=== PATIENT | female | born 1955 | race Caucasian/White ===

== ENCOUNTER → 2016-06-28 | Outpatient (CLI) | payer MEDICARE, OTHER ==
--- NOTE | 2016-06-28 14:48 | MR ---
EXAMINATION TYPE: MR lumbar spine wo con DATE OF EXAM: 06/28/2016 2:15 PM COMPARISON: NONE HISTORY: DDD, back pain CONTRAST: 0 mL intravenous MultiHance. TECHNIQUE: Multiplanar, multisequence images of the lumbar spine were acquired. FINDINGS: L5-S1: Minimal disc bulge is present with anterior thecal sac contact. Facet hypertrophy is present. No spinal canal stenosis is present. No significant foraminal narrowing is present. Mild disc space n arrowing is present. L4-L5: There is loss of disc height is level. Residual disc bulge has moderate anterior thecal sac co mpression. There is a small left paracentral subligamentous disc herniation extending inferior with m ild anterior thecal sac compression. This is best visualized in the axial plane poorly visualized on the sagittal plane Facet hypertrophy and ligamentum flavum laxity is present with posterior lateral t hecal sac compression. Lateral recesses are patent. There is moderate right and left foraminal stenos is. Minimal contact within the neural foramen with disc material may be present. Correlate with radic ular symptoms. L3-L4: Minimal disc bulging is anterior thecal sac flattening. No AP spinal canal stenosis present. F acet hypertrophy and ligamentum flavum laxity is present. This has posterior lateral thecal sac compr ession. L2-L3: Minimal disc bulge is present with anterior thecal sac contact. No spinal canal stenosis or ne ural foraminal stenosis is present. L1-L2: No significant disc bulge or disc herniation. No spinal canal stenosis. No foraminal stenosi s. Disc space narrowing is present.. T12-L1: No significant disc bulge or disc herniation. No spinal canal stenosis. No foraminal stenos is. Neural foramen are patent.. IMPRESSION: 1. Left paracentral small disc herniation L4-5 extending posterior to L5 with mild anterior thecal sa c compression. Residual broad-based disc bulge has moderate anterior thecal sac compression. 2. Moderate foraminal stenosis with possible disc material impinging the exiting nerve root within th e foramen. Correlate with the radicular symptoms.
== END | disposition home or self-care (01) ==
LOC: RADMRIMAIN 13:30
PROVIDERS: ATTEND Nurse Practitioner
DX: M99.73 Connective tissue and disc stenosis of intervertebral foramina of lumbar region (principal); M51.16 Intervertebral disc disorders with radiculopathy, lumbar region
CPT/HCPCS: 72148

== ENCOUNTER → 2019-05-05 | Outpatient (CLI) | payer MEDICARE, OTHER ==
--- NOTE | 2019-05-05 20:23 | MR ---
EXAMINATION TYPE: MR shoulder LT wo con DATE OF EXAM: 05/05/2019 COMPARISON: None HISTORY: Lt shoulder pain TECHNIQUE: Multiplanar, multisequence imaging of the left shoulder is performed without contrast. FINDINGS: There is motion on the exam which may limit evaluation Rotator Cuff: Full-thickness partial tear is present of the rotator cuff tendon, supraspinatus tendon shows partial discontinuity at its central aspect Acromioclavicular Joint: Arthropathy at the acromioclavicular joint causes some mass effect on the mu sculotendinous junction of supraspinatus. Distal acromion is downturned Glenohumeral Joint: Intact Labrum: The labrum appears grossly intact given limitation of non-arthrogram study. Biceps Tendon: Fluid signal is present along the long head of biceps tendon, the tendon shows a maximo l position in the bicipital groove Bone marrow signal: Pseudocysts are present in the humeral head. Other: Fluid signal present along the subscapularis musculotendinous junction, difficult to exclude a local ganglion cyst IMPRESSION: Partial full-thickness tear rotator cuff. Correlate for impingement. Additional findings above.
== END | disposition home or self-care (01) ==
LOC: RADMRIMAIN 15:48
PROVIDERS: ATTEND Nurse Practitioner
DX: M75.122 Complete rotator cuff tear or rupture of left shoulder, not specified as traumatic (principal); M12.812 Other specific arthropathies, not elsewhere classified, left shoulder

== ENCOUNTER 2019-07-25 00:05 | Emergency (ER) | payer MEDICARE ==
[2019-07-25 00:22] VITALS: RESP 18
--- NOTE | 2019-07-25 01:07 | ED ---
Extremity Problem HPI - General Chief complaint: Extremity Problem,Nontraumatic Stated complaint: R Arm Pain/ Tingling Time Seen by Provider: 07/25/19 00:35 Source: patient Mode of arrival: ambulatory - History of Present Illness Initial comments: This patient is a 64-year-old woman who presents with complaint of having a burning or tingling sensation to the right arm has been going on for days to weeks but is much worse over the past day to 2. Patient indicates base from the shoulder down towards the fingers. The sensation may be worse along the radial aspect. The patient states that it sometimes seems to be worse after movement although nothing makes it resolved. No weakness. Patient denies any trauma. MD Complaint: extremity pain -: week(s) Location: right, upper extremity History of Same: Yes Radiation: distal Quality: other Consistency: constant Improves with: nothing Worsens with: other (Movement) Associated Symptoms: denies other symptoms - Related Data Home Medications Medication Instructions Recorded Confirmed Sertraline HCl 100 mg PO DAILY 03/14/15 07/25/19 Hydrocodone/Acetaminophen [[place] 1 tab PO Q6HR PRN 07/25/19 07/25/19 5-325] Previous Rx's Medication Instructions Recorded predniSONE 60 mg PO DAILY #30 tab 07/25/19 Allergies Allergy/AdvReac Type Severity Reaction Status Date / Time No Known Allergies Allergy Verified 07/25/19 00:23 Review of Systems ROS Statement: Those systems with pertinent positive or pertinent negative responses have been documented in the HPI. ROS Other: All systems not noted in ROS Statement are negative. Constitutional: Denies: fever, chills, weakness Respiratory: Denies: cough, dyspnea Cardiovascular: Denies: chest pain, edema, syncope Gastrointestinal: Denies: vomiting Skin: Denies: rash Neurological: Reports: as per HPI, paresthesias. Denies: headache, weakness, numbness Past Medical History Past Medical History: Osteoarthritis (OA) Additional Past Medical History / Comment(s): SHORT OF BREATH EASILY SINCE 11/2014, EST. ABN STRESS TEST. History of Any Multi-Drug Resistant Organisms: None Reported Past Surgical History: Heart Catheterization, Orthopedic Surgery Additional Past Surgical History / Comment(s): LT KNEE ARTHROSCOPY. RT ROTATOR CUFF. Past Anesthesia/Blood Transfusion Reactions: No Reported Reaction Past Psychological History: Depression Smoking Status: Former smoker Past Alcohol Use History: None Reported Past Drug Use History: None Reported - Past Family History Father Family Medical History: Myocardial Infarction ([place]) Mother Family Medical History: Myocardial Infarction ([place]) General Exam General appearance: alert, in no apparent distress Head exam: Present: atraumatic, normocephalic Eye exam: Present: normal appearance. Absent: scleral icterus, conjunctival injection Neck exam: Present: full ROM. Absent: tenderness Respiratory exam: Present: normal lung sounds bilaterally. Absent: respiratory distress, wheezes, rales, rhonchi, stridor Cardiovascular Exam: Present: regular rate, normal rhythm, normal heart sounds Extremities exam: Present: normal inspection, full ROM, normal capillary refill. Absent: tenderness Back exam: Absent: paraspinal tenderness, vertebral tenderness Neurological exam: Present: alert. Absent: motor sensory deficit Skin exam: Present: warm, dry, intact, normal color. Absent: rash Course Vital Signs 07/25/19 07/25/19 00:19 02:30 Temperature 97.8 F 97.7 F Pulse Rate 63 56 L Respiratory 18 18 Rate Blood Pressure 139/64 125/65 O2 Sat by Pulse 96 99 Oximetry Medical Decision Making - Medical Decision Making Patient is a 64-year-old woman with history of physical exam consistent with neuropathic pain to the right arm. She has had decent relief with treatment here. We discussed appropriate further care and follow-up including possibility of needing C-spine MRI and/or EMG. Patient given course of steroids. Return parameters discussed. - Lab Data Result diagrams: 07/25/19 01:02 07/25/19 01:02 Lab Results 07/25/19 07/25/19 07/25/19 Range/Units 01:02 01:02 01:02 WBC 7.7 (3.8-10.6) k/uL RBC 4.08 (3.80-5.40) m/uL Hgb 11.2 L (11.4-16.0) gm/dL Hct 35.4 (34.0-46.0) % MCV 86.7 (80.0-100.0) fL MCH 27.5 (25.0-35.0) pg MCHC 31.8 (31.0-37.0) g/dL RDW 13.3 (11.5-15.5) % Plt Count 390 (150-450) k/uL Neutrophils % 56 % Lymphocytes % 28 % Monocytes % 8 % Eosinophils % 4 % Basophils % 1 % Neutrophils # 4.3 (1.3-7.7) k/uL Lymphocytes # 2.2 (1.0-4.8) k/uL Monocytes # 0.6 (0-1.0) k/uL Eosinophils # 0.3 (0-0.7) k/uL Basophils # 0.1 (0-0.2) k/uL D-Dimer 0.41 (<0.60) mg/L FEU Sodium 138 (137-145) mmol/L Potassium 4.6 (3.5-5.1) mmol/L Chloride 104 (98-107) mmol/L Carbon Dioxide 27 (22-30) mmol/L Anion Gap 7 mmol/L BUN 28 H (7-17) mg/dL Creatinine 0.82 (0.52-1.04) mg/dL Est GFR (CKD-EPI)AfAm 88 (>60 ml/min/1.73 sqM) Est GFR (CKD-EPI)NonAf 77 (>60 ml/min/1.73 sqM) Glucose 85 (74-99) mg/dL Calcium 9.1 (8.4-10.2) mg/dL Total Bilirubin 0.3 (0.2-1.3) mg/dL AST 40 H (14-36) U/L ALT 20 (4-34) U/L Alkaline Phosphatase 108 (38-126) U/L Troponin I (0.000-0.034) ng/mL Total Protein 6.9 (6.3-8.2) g/dL Albumin 4.0 (3.5-5.0) g/dL 07/25/19 Range/Units 01:02 WBC (3.8-10.6) k/uL RBC (3.80-5.40) m/uL Hgb (11.4-16.0) gm/dL Hct (34.0-46.0) % MCV (80.0-100.0) fL MCH (25.0-35.0) pg MCHC (31.0-37.0) g/dL RDW (11.5-15.5) % Plt Count (150-450) k/uL Neutrophils % % Lymphocytes % % Monocytes % % Eosinophils % % Basophils % % Neutrophils # (1.3-7.7) k/uL Lymphocytes # (1.0-4.8) k/uL Monocytes # (0-1.0) k/uL Eosinophils # (0-0.7) k/uL Basophils # (0-0.2) k/uL D-Dimer (<0.60) mg/L FEU Sodium (137-145) mmol/L Potassium (3.5-5.1) mmol/L Chloride (98-107) mmol/L Carbon Dioxide (22-30) mmol/L Anion Gap mmol/L BUN (7-17) mg/dL Creatinine (0.52-1.04) mg/dL Est GFR (CKD-EPI)AfAm (>60 ml/min/1.73 sqM) Est GFR (CKD-EPI)NonAf (>60 ml/min/1.73 sqM) Glucose (74-99) mg/dL Calcium (8.4-10.2) mg/dL Total Bilirubin (0.2-1.3) mg/dL AST (14-36) U/L ALT (4-34) U/L Alkaline Phosphatase (38-126) U/L Troponin I <0.012 (0.000-0.034) ng/mL Total Protein (6.3-8.2) g/dL Albumin (3.5-5.0) g/dL - EKG Data -: EKG Interpreted by [facility] EKG shows normal: sinus rhythm, axis (Normal), intervals (Normal), QRS complexes (Normal), ST-T waves (Normal) Rate: bradycardia (Rate 57 bpm) Interpretation: normal EKG Disposition Clinical Impression: Neuropathy Disposition: HOME SELF-CARE Condition: Good Instructions (If sedation given, give patient instructions): Cervical Radiculopathy (ED) Prescriptions: predniSONE 60 mg PO DAILY #30 tab Is patient prescribed a controlled substance at d/c from ED?: No Referrals: Henrietta Farias DO [Primary Care Provider] - 1-2 days Neymar Kent MD [STAFF PHYSICIAN] - 1-2 days
[2019-07-25] MEDS ORDERED: predniSONE 20 MG TAB PO STA (01:23)
[2019-07-25] MEDS ORDERED: HYDROcodone/APAP 10-325MG 1 EACH TAB PO ONE (01:23)
[2019-07-25 01:29] LABS: Basophils # (A) 0.1 k/uL (0-0.2); Basophils % (A) 1 %; Eosinophils # (A) 0.3 k/uL (0-0.7); Eosinophils % (A) 4 %; HCT 35.4 % (34.0-46.0); HGB 11.2 gm/dL (11.4-16.0); Lymphocytes # (A) 2.2 k/uL (1.0-4.8); Lymphocytes % (A) 28 %; MCH 27.5 pg (25.0-35.0); MCHC 31.8 g/dL (31.0-37.0); MCV 86.7 fL (80.0-100.0); Mean Platelet Volume 7.3; Monocytes # (A) 0.6 k/uL (0-1.0); Monocytes % (A) 8 %; Neutrophils # (A) 4.3 k/uL (1.3-7.7); Neutrophils % (A) 56 %; Platelet Count 390 k/uL (150-450); RBC 4.08 m/uL (3.80-5.40); RDW 13.3 % (11.5-15.5); WBC 7.7 k/uL (3.8-10.6)
[2019-07-25 01:45] LABS: Calcium 9.1 mg/dL (8.4-10.2); Potassium 4.6 mmol/L (3.5-5.1); Total Bilirubin 0.3 mg/dL (0.2-1.3); Total Protein 6.9 g/dL (6.3-8.2)
[2019-07-25 02:49] VITALS: BP 125/65; PULSE 56; TEMP 97.7
== END 2019-07-25 02:30 | disposition home or self-care (01) ==
LOC: EC 00:05
DX: G62.9 Polyneuropathy, unspecified (principal); F32.9 Major depressive disorder, single episode, unspecified; Z79.899 Other long term (current) drug therapy; Z87.891 Personal history of nicotine dependence
CPT/HCPCS: 36415; 93005; 85379; 80053; 84484; 85025; 99284; J7512

== ENCOUNTER → 2020-04-12 | Outpatient (CLI) | payer MEDICARE, OTHER ==
--- NOTE | 2020-04-12 16:35 | MR ---
EXAMINATION TYPE: MR cervical spine wo con DATE OF EXAM: 04/12/2020 COMPARISON: None HISTORY: 65-year-old female M50.33, neck pain, Cervical disc degeneration TECHNIQUE: Multiplanar, multisequence images of the cervical spine were acquired. FINDINGS: Exam is motion degraded on all sequences. No craniocervical junction abnormality, predental space widening, or prevertebral soft tissue swellin g. Degenerative change is present at the C1 dens articulation. There is preserved alignment of the cervical spine. Mild heterogeneous marrow signal without suspicious bone marrow placement. Moderate degenerative disc disease C6-C7 with disc space narrowing, desiccation, disc osteophyte comp patricia. There is endplate irregularity and some associated Modic type I endplate change here. Mild degenerative disc disease at additional levels. There is a component of mild congenital spinal canal stenosis throughout the cervical spine with AP c anal dimension of 1.0 cm. Scattered facet arthropathy, particularly on the left in the mid and lower aspect of the cervical spi ne. At C2-C3, facet arthropathy without significant canal or foraminal stenosis. At C3-C4, mild facet and uncovertebral joint arthropathy contributing to mild right neuroforaminal st enosis. No significant spinal canal stenosis. At C4-C5, facet arthropathy without significant canal or foraminal stenosis. Underlying mild congenit al spinal canal narrowing. At C5-C6, broad-based posterior disc ossific complex abutting the ventral cord. This accentuates the mild overall spinal canal stenosis. Uncovertebral joint and facet arthropathy contributing to moderat e bilateral neuroforaminal stenosis. At C6-C7, disc osteophyte complex with uncovertebral joint and facet arthropathy, greater on the left results in moderate to severe left and [id number] right neuroforaminal stenosis. Mild to moder ate spinal canal stenosis with abutment and flattening of the ventral cord. At C7-T1, no canal or foraminal stenosis. No prevertebral or paravertebral soft tissue abnormality seen. Limited assessment for any T2-weighted cord signal abnormality due to motion. No definite myelopathic cord signal change. IMPRESSION: 1. Mild multilevel degenerative disc disease, more moderate at C6-C7 with some associated edematous M odic type I endplate change. 2. Scattered facet and uncovertebral joint arthropathy. No malalignment. 3. A component of mild congenital spinal canal stenosis with AP canal dimension of 1.0 cm. This mild narrowing is accentuated at C5-C6 secondary to disc osteophyte complex. There is overall mild to mode rate canal stenosis at C6-C7 with abutment and slight flattening of the ventral cord. No high-grade c anal compromise. 4. Variable neural foraminal stenoses as outlined above, moderate on both sides at C5-C6 and moderate to severe on the left at C6-C7.
== END | disposition home or self-care (01) ==
LOC: RADMRIMAIN 11:30
PROVIDERS: ATTEND Nurse Practitioner
DX: M48.02 Spinal stenosis, cervical region (principal); M50.323 Other cervical disc degeneration at C6-C7 level; M47.812 Spondylosis without myelopathy or radiculopathy, cervical region
CPT/HCPCS: 72141

== ENCOUNTER 2020-08-25 14:39 | Emergency (ER) | payer MEDICARE, OTHER ==
[2020-08-25 14:50] VITALS: BP 136/71; PULSE 77; RESP 16; TEMP 98.3
[2020-08-25] MEDS ORDERED: HYDROcodone/APAP 5-325MG 1 EACH TAB PO STA (15:12)
--- NOTE | 2020-08-25 15:17 | ED ---
Upper Extremity HPI - General Source: patient, RN notes reviewed Mode of arrival: ambulatory Limitations: no limitations - History of Present Illness MD Complaint: Injury to:: left, hand -: days(s) (1, yesterday at 1700) Other Injuries: none Handedness: right Place: home Severity scale (1-10): 10 Improves With: immobilization Context: fall (Fell up the steps yesterday and landed on the left) Associated Symptoms: denies other symptoms Treatments Prior to Arrival: splint <Sudarshan Aragon - Last Filed: 08/25/20 16:13> <Carmela Sams - Last Filed: 08/26/20 12:02> - General Chief Complaint: Extremity Injury, Upper Stated Complaint: L hand injury, sent from dr Time Seen by Provider: 08/25/20 14:54 - History of Present Illness Initial Comments: 65-year-old white female patient in no acute distress., Alert and oriented 4, presents to the emergency room status post fall yesterday at 5 PM. Patient states was walking into the house and didn't lift her foot high enough for the step, falling onto left hand. 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 Patient states also went to work today but was told by coworkers that the hand looked broken so she went to her primary care doctor's office who did an x-ray and told her to come to the emergency room for a left hand fracture. Patient denies any other injuries. States pain is throbbing in nature. Splint applied by PMD, has been taking Mo kasey for pain, last dose 5 hours ago. (Sudarshan Aragon) - Related Data Home Medications Medication Instructions Recorded Confirmed Sertraline HCl 100 mg PO DAILY 03/14/15 07/25/19 Hydrocodone/Acetaminophen [[place] 1 tab PO Q6HR PRN 07/25/19 07/25/19 5-325] Previous Rx's Medication Instructions Recorded predniSONE 60 mg PO DAILY #30 tab 07/25/19 Ibuprofen [Motrin] 600 mg PO Q8HR PRN #30 tab 08/25/20 Allergies Allergy/AdvReac Type Severity Reaction Status Date / Time No Known Allergies Allergy Verified 08/25/20 14:46 Review of Systems ROS Other: All systems not noted in ROS Statement are negative. <Sudarshan Aragon - Last Filed: 08/25/20 16:13> ROS Other: All systems not noted in ROS Statement are negative. <Carmela Sams - Last Filed: 08/26/20 12:02> ROS Statement: Those systems with pertinent positive or pertinent negative responses have been documented in the HPI. Past Medical History Past Medical History: Osteoarthritis (OA) Additional Past Medical History / Comment(s): SHORT OF BREATH EASILY SINCE 11/2014, EST. ABN STRESS TEST. History of Any Multi-Drug Resistant Organisms: None Reported Past Surgical History: Heart Catheterization, Orthopedic Surgery Additional Past Surgical History / Comment(s): LT KNEE ARTHROSCOPY. RT ROTATOR CUFF. Past Anesthesia/Blood Transfusion Reactions: No Reported Reaction Past Psychological History: Depression Smoking Status: Former smoker Past Alcohol Use History: None Reported Past Drug Use History: None Reported - Past Family History Father Family Medical History: Myocardial Infarction ([place]) Mother Family Medical History: Myocardial Infarction ([place]) <Manohar Aragoni - Last Filed: 08/25/20 16:13> General Exam Limitations: no limitations General appearance: alert, in no apparent distress Head exam: Present: atraumatic, normocephalic, normal inspection Eye exam: Present: normal appearance, PERRL, EOMI. Absent: scleral icterus, conjunctival injection, periorbital swelling ENT exam: Present: normal exam, mucous membranes moist Neck exam: Present: normal inspection, full ROM. Absent: tenderness, meningismus, lymphadenopathy, thyromegaly Respiratory exam: Present: normal lung sounds bilaterally. Absent: respiratory distress, wheezes, rales, rhonchi, stridor Cardiovascular Exam: Present: regular rate, normal rhythm, normal heart sounds. Absent: systolic murmur, diastolic murmur, rubs, gallop, clicks Left Elbow exam: Present: normal inspection, full ROM. Absent: tenderness, laceration, deformity Forearm Wrist exam: Present: normal inspection, full ROM Hand Wrist exam: Present: tenderness, swelling, ecchymosis (Swelling and Bruising noted to left hand. Patient unable to bend third, fourth and fifth digits without pain ). Absent: full ROM Neuro motor exam: Present: wrist extension intact Neurosensory exam: Present: radial nerve intact, other (Patient unable to bring fourth or fifth digit to thumb without pain) Vascular: Present: normal capillary refill, radial pulse Neurological exam: Present: alert, oriented X3 Psychiatric exam: Present: normal affect, normal mood Skin exam: Present: warm, dry, intact, normal color. Absent: rash <Sudarshan Aragon - Last Filed: 08/25/20 16:13> Course Vital Signs 08/25/20 14:47 Temperature 98.3 F Pulse Rate 77 Respiratory 16 Rate Blood Pressure 136/71 O2 Sat by Pulse 97 Oximetry Procedures - Orthopedic Splinting/Casting Injury #1 Side: left Upper Extremity Injury Location: hand Upper Extremity Immobilizer: ulnar gutter, synthetic pre-padded splint Lower Extremity Immobilizer: synthetic pre-padded splint (Neurovascularly intact prior to and post splint placement) <Sudarshan Aragon - Last Filed: 08/25/20 16:13> Medical Decision Making <Sudarshan Aragon - Last Filed: 08/25/20 16:13> <Carmela Sams - Last Filed: 08/26/20 12:02> - Medical Decision Making Patient with a boxer's fracture of the left fifth digit, minimally displaced. Ulnar gutter splint applied, neurovascularly intact prior to and post splint. Patient directed to follow up with orthopedics in 1 week. Case discussed with Dr. Sams who is agreeable to this plan. Patient understands the importance of follow-up for proper fracture healing. (Sudarshan Aragon) I was available for consultation in the emergency department. The history and physical exam were done by the midlevel provider. I was consulted for this patients care. I reviewed the case with the midlevel provider and based on their presentation of the patient, I agree with the assessment, medical decision making and plan of care as documented. Chart was dictated using [employer] dictation software. Attempts were made to correct any dictation errors however some typographical errors may persist. Patient was seen during a national state of emergency due to the Covid-19 pandemic. (Carmela Sams) Disposition Is patient prescribed a controlled substance at d/c from ED?: No Time of Disposition: 16:19 <Sudarshan Aragon - Last Filed: 08/25/20 16:13> <Carmela Sams - Last Filed: 08/26/20 12:02> Clinical Impression: Boxers fracture Disposition: HOME SELF-CARE Condition: Good Instructions (If sedation given, give patient instructions): Hand Fracture (ED) Additional Instructions: Wear splint until seen by orthopedics, take Motrin as prescribed for pain and swelling. Return to emergency room if increased pain. Prescriptions: Ibuprofen [Motrin] 600 mg PO Q8HR PRN #30 tab PRN Reason: Pain Referrals: Henrietta Farias DO [Primary Care Provider] - 1-2 days
== END 2020-08-25 16:36 | disposition home or self-care (01) ==
LOC: EC 14:39
DX: S62.607A Fracture of unspecified phalanx of left little finger, initial encounter for closed fracture (principal); F32.9 Major depressive disorder, single episode, unspecified; Z79.899 Other long term (current) drug therapy; Z87.891 Personal history of nicotine dependence; W10.9XXA Fall (on) (from) unspecified stairs and steps, initial encounter; Y93.01 Activity, walking, marching and hiking
CPT/HCPCS: 29125; 99283

== ENCOUNTER 2021-02-23 14:17 | Inpatient (IN) | payer MEDICARE, OTHER ==
--- NOTE | 2021-02-23 15:26 | XR ---
EXAMINATION TYPE: XR chest 2V DATE OF EXAM: 02/23/2021 COMPARISON: Chest x-ray July 31, 2013. Outside chest x-ray earlier today HISTORY: Dizziness. TECHNIQUE: Frontal and lateral views of the chest are obtained. FINDINGS: There is increased interstitial prominence greater in the lung bases. No pleural effusion or pneumothorax seen bilaterally. The cardiac silhouette size is mildly enlarged. The osseous struc tures are intact. IMPRESSION: Mild cardiomegaly with suspected mild interstitial edema on background chronic parenchym al change. Correlate for mild CHF exacerbation.
--- NOTE | 2021-02-23 15:27 | CT ---
EXAMINATION TYPE: CT brain wo con for TPA DATE OF EXAM: 02/23/2021 HISTORY: Fall, dizziness, leaning to the Lt CT DLP: 1030 mGycm. Automated Exposure Control for Dose Reduction was Utilized. TECHNIQUE: CT scan of the head is performed without contrast. COMPARISON: None. FINDINGS: There is no acute intracranial hemorrhage or midline shift identified. There is mild diff use ventricular and sulcal prominence consistent with diffuse age-related cerebral atrophy. Barahona-whit e matter differentiation is maintained. The globes are intact and the visualized sinuses are clear. IMPRESSION: No acute intracranial hemorrhage or midline shift.
--- NOTE | 2021-02-23 15:41 | CT ---
EXAMINATION TYPE: CT angio head neck DATE OF EXAM: 02/23/2021 HISTORY: Fall, dizziness, Leaning to the left COMPARISON: None. CT DLP: 407.7 mGycm. Automated Exposure Control for Dose Reduction was Utilized. TECHNIQUE: CTA scan of the head and neck are performed with IV Contrast, patient injected with 65 mL of Isovue 370, axial images are obtained, coronal and sagittal reformatted images are reviewed. 3D r econstructed images are created on an independent workstation and reviewed. FINDINGS: Carotid/Vascular Structures: Normal three-vessel origin from aortic arch. Normal origin right common carotid artery from right brachiocephalic artery. No significant plaque or stenosis. No significant p laque or stenosis in the common carotid arteries bilaterally. 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 There is dominant left vertebral artery. Vertebral arteries are patent to the basilar junction. There are small caliber but patent bilateral posterior communicating arteries. Similar small caliber a pat ent anterior communicating artery. No significant focal stenosis or aneurysm. Other: Overall mosaic attenuation visualized lungs could reflect mild edema change. Slight underlying scoliotic curvature. Spine is straightened on sagittal images with moderate narrowi ng and mild/moderate spurring C5-C6 and C6-C7 levels. IMPRESSION: 1. No significant stenosis in common or internal carotid arteries bilaterally. 2. No significant stenosis or aneurysm at the level of the [place] of [place]. NASCET criteria was used in interpretation of this exam?
[2021-02-23 15:54] LABS: Basophils # (A) 0.1 k/uL (0-0.2); Basophils % (A) 2 %; Eosinophils # (A) 0.1 k/uL (0-0.7); Eosinophils % (A) 1 %; HCT 38.2 % (34.0-46.0); HGB 12.3 gm/dL (11.4-16.0); Lymphocytes # (A) 0.9 k/uL (1.0-4.8); Lymphocytes % (A) 17 %; MCH 28.5 pg (25.0-35.0); MCHC 32.3 g/dL (31.0-37.0); MCV 88.3 fL (80.0-100.0); Mean Platelet Volume 7.6; Monocytes # (A) 0.7 k/uL (0-1.0); Monocytes % (A) 13 %; Neutrophils # (A) 3.5 k/uL (1.3-7.7); Neutrophils % (A) 65 %; Platelet Count 304 k/uL (150-450); RBC 4.32 m/uL (3.80-5.40); RDW 12.9 % (11.5-15.5); WBC 5.5 k/uL (3.8-10.6)
[2021-02-23 16:04] LABS: Albumin 4.2 g/dL (3.5-5.0); Calcium 9.1 mg/dL (8.4-10.2); Potassium 4.1 mmol/L (3.5-5.1); Total Bilirubin 0.3 mg/dL (0.2-1.3); Total Protein 7.4 g/dL (6.3-8.2)
[2021-02-23] MEDS ORDERED: ASPIRIN 325 MG TAB PO STA (16:04)
--- NOTE | 2021-02-23 16:05 | ED ---
General Adult HPI - General Chief complaint: Neuro Symptoms/Deficit Stated complaint: Fall/dizziness Time Seen by Provider: 02/23/21 14:37 Source: patient, EMS, RN notes reviewed, old records reviewed Mode of arrival: EMS Limitations: no limitations - History of Present Illness Initial comments: Patient is a 66-year-old female with past medical history remarkable for osteoarthritis, prior CAD, chronic bilateral upper extremity radiculopathy presents to the emergency Department after being transferred from an outside facility, [facility], for stroke rule out. Stroke workup was completed at the outside hospital, however they do not have MRI or CT capabilities. NIH was found to be 1 for cerebellar dysfunction with abnormal finger-nose testing. CT head was unremarkable. She is transferred here for CTA and possible MRI. Patient states that she has definitely since she awoke this morning but possibly for the last 2 days she has been having increased fatigue, as well as lightheadedness and dizzy spells.She states she was driving today and she was favoring the left side of the road. This morning, she also felt fatigued and slid on her bottom down the steps. She did not hit her head. She did not suffer any traumatic injury. She is not on blood thinners. Patient was brought by her daughter to the emergency department at the outside facility for evaluation. She denies any fevers, chills. States she is a mild tension-like headache. Denies any chest pain, shortness breath, abdominal pain, nausea, vomiting. She is endorsing chronic bilateral upper extremity radiculopathy pain. Denies any lower extremity weakness or numbness. She has no other acute complaints at this time. She presents today for further evaluation by neurology and more brain imaging. - Related Data Home Medications Medication Instructions Recorded Confirmed Sertraline HCl 200 mg PO HS 03/14/15 02/23/21 Hydrocodone/Acetaminophen [[place] 1 tab PO QID PRN 07/25/19 02/23/21 5-325] Pregabalin [Lyrica] 150 mg PO HS 02/23/21 02/23/21 Allergies Allergy/AdvReac Type Severity Reaction Status Date / Time No Known Allergies Allergy Verified 02/23/21 15:58 Review of Systems ROS Statement: Those systems with pertinent positive or pertinent negative responses have been documented in the HPI. Review of Systems: CONST: Denies fever EYES: Denies blurry vision ENT: Denies nasal congestion C/V: Denies Chest pain RESP: Denies shortness of breath GI: Denies abdominal pain : Denies dysuria SKIN: Denies rash. MSK: Denies joint pain. NEURO: Endorses headache ROS Other: All systems not noted in ROS Statement are negative. Past Medical History Past Medical History: Osteoarthritis (OA) Additional Past Medical History / Comment(s): SHORT OF BREATH EASILY SINCE 11/2014, EST. ABN STRESS TEST. History of Any Multi-Drug Resistant Organisms: None Reported Past Surgical History: Heart Catheterization, Orthopedic Surgery Additional Past Surgical History / Comment(s): LT KNEE ARTHROSCOPY. RT ROTATOR CUFF. Past Anesthesia/Blood Transfusion Reactions: No Reported Reaction Past Psychological History: Depression Smoking Status: Former smoker Past Alcohol Use History: None Reported Past Drug Use History: None Reported - Past Family History Father Family Medical History: Myocardial Infarction ([place]) Mother Family Medical History: Myocardial Infarction ([place]) General Exam - General Exam Comments Initial Comments: General: Appears in no acute distress. HEAD: Normal with no signs of head trauma. No raccoon eyes, no avila sign, no hemotympanum. No step-offs or deformity of the skull. EYES: PERRLA, EOMI, conjunctiva normal, no discharge. Pupils are 3 mm and equal bilaterally. ENT: Hearing grossly intact, normal oropharynx. RESPIRATORY: Clear breath sounds bilaterally. No wheezes, rales, or rhonchi. C/V: Regular rate and rhythm. S1 and S2 auscultated, no edema, peripheral pulses 2+ and intact throughout ABD: Abd is soft, nontender, nondistended EXT: Normal range of motion, no obvious deformity SKIN: No rashes or lesions observed on exposed skin. NEURO: Alert and oriented 4. Cranial nerves II through XII are intact. No focal sensory strength deficits. Cerebellar function appears affected as the patient does have dysdiadochokinesia bilateral extremities, with right appearing worse than left. Patient also has affected finger to nose testing, with right worse than left, however no affected [id number] testing. I did not ambulate the patient. NIH stroke scale is 1 for the cerebellar function. GCS is 15. Limitations: no limitations Course Vital Signs 02/23/21 02/23/21 02/23/21 14:28 18:00 18:30 Temperature 99.5 F 98.2 F Pulse Rate 78 86 56 L Respiratory 20 16 18 Rate Blood Pressure 144/83 108/75 120/65 O2 Sat by Pulse 98 96 99 Oximetry 02/23/21 21:11 Temperature Pulse Rate 62 Respiratory 20 Rate Blood Pressure 118/76 O2 Sat by Pulse 96 Oximetry Medical Decision Making - Medical Decision Making Based on the patient's presentation and physical exam, I'm concerned for possible acute stroke. Patient is not a TPA candidate as there is an uncertain last known well, which appears to be definitively 1-2 days ago. At best, patient woke up with worsening symptoms, however they seem to be there over the last at least day. Therefore stroke pager was not activated. She is not a TPA candidate for those reasons. CT imaging of the outside facility was completed, however did not come with the patient therefore we will repeat CT brain without contrast and patient's CT head with contrast. MRI will be ordered following studies. We will repeat basic laboratory studies and EKG. She'll be admitted to the hospital for neurology evaluation. She was in agreement this plan. NIH was 1. Patient's CT brain revealed no acute intracranial process. Patient's CTA brain revealed no significant stenosis in the carotids. No acute process. Patient's chest x-ray revealed no acute cardiopulmonary process. Was read as possible mild CHF exacerbation the patient denies any shortness of breath at this time. She has no history of CHF. Laboratory studies were remarkable for a negative troponin. EKG showed no signs of acute ischemia. Remainder of the labs are unremarkable. On reevaluation, patient's exam remains unchanged. She'll be given an aspirin 325 mg that she does not that she received a dose at the outside facility. I explained to her that we will admit her to the hospital for MRI as she is continuing to have the cerebellar symptoms. She was in agreement this plan. I spoke with the admitting team, Dr. Mancera and his MLP Dimple who accepted the patient. I also spoke with on-call neurology Dr. montero was in agreement this plan. Screening Covid test is still pending at this time. Patient was therefore admitted in serious condition to telemetry bed. - Lab Data Result diagrams: 02/23/21 15:41 02/23/21 15:41 Lab Results 02/23/21 02/23/21 02/23/21 Range/Units 15:41 15:41 15:41 WBC 5.5 (3.8-10.6) k/uL RBC 4.32 (3.80-5.40) m/uL Hgb 12.3 (11.4-16.0) gm/dL Hct 38.2 (34.0-46.0) % MCV 88.3 (80.0-100.0) fL MCH 28.5 (25.0-35.0) pg MCHC 32.3 (31.0-37.0) g/dL RDW 12.9 (11.5-15.5) % Plt Count 304 (150-450) k/uL MPV 7.6 Neutrophils % 65 % Lymphocytes % 17 % Monocytes % 13 % Eosinophils % 1 % Basophils % 2 % Neutrophils # 3.5 (1.3-7.7) k/uL Lymphocytes # 0.9 L (1.0-4.8) k/uL Monocytes # 0.7 (0-1.0) k/uL Eosinophils # 0.1 (0-0.7) k/uL Basophils # 0.1 (0-0.2) k/uL PT 10.2 (9.0-12.0) sec INR 1.0 (<1.2) APTT 28.1 (22.0-30.0) sec Sodium 135 L (137-145) mmol/L Potassium 4.1 (3.5-5.1) mmol/L Chloride 100 (98-107) mmol/L Carbon Dioxide 27 (22-30) mmol/L Anion Gap 8 mmol/L BUN 19 H (7-17) mg/dL Creatinine 0.82 (0.52-1.04) mg/dL Est GFR (CKD-EPI)AfAm 87 (>60 ml/min/1.73 sqM) Est GFR (CKD-EPI)NonAf 75 (>60 ml/min/1.73 sqM) Glucose 101 H (74-99) mg/dL Calcium 9.1 (8.4-10.2) mg/dL Total Bilirubin 0.3 (0.2-1.3) mg/dL AST 33 (14-36) U/L ALT 15 (4-34) U/L Alkaline Phosphatase 105 (38-126) U/L Troponin I (0.000-0.034) ng/mL Total Protein 7.4 (6.3-8.2) g/dL Albumin 4.2 (3.5-5.0) g/dL 02/23/21 Range/Units 15:41 WBC (3.8-10.6) k/uL RBC (3.80-5.40) m/uL Hgb (11.4-16.0) gm/dL Hct (34.0-46.0) % MCV (80.0-100.0) fL MCH (25.0-35.0) pg MCHC (31.0-37.0) g/dL RDW (11.5-15.5) % Plt Count (150-450) k/uL MPV Neutrophils % % Lymphocytes % % Monocytes % % Eosinophils % % Basophils % % Neutrophils # (1.3-7.7) k/uL Lymphocytes # (1.0-4.8) k/uL Monocytes # (0-1.0) k/uL Eosinophils # (0-0.7) k/uL Basophils # (0-0.2) k/uL PT (9.0-12.0) sec INR (<1.2) APTT (22.0-30.0) sec Sodium (137-145) mmol/L Potassium (3.5-5.1) mmol/L Chloride (98-107) mmol/L Carbon Dioxide (22-30) mmol/L Anion Gap mmol/L BUN (7-17) mg/dL Creatinine (0.52-1.04) mg/dL Est GFR (CKD-EPI)AfAm (>60 ml/min/1.73 sqM) Est GFR (CKD-EPI)NonAf (>60 ml/min/1.73 sqM) Glucose (74-99) mg/dL Calcium (8.4-10.2) mg/dL Total Bilirubin (0.2-1.3) mg/dL AST (14-36) U/L ALT (4-34) U/L Alkaline Phosphatase (38-126) U/L Troponin I <0.012 (0.000-0.034) ng/mL Total Protein (6.3-8.2) g/dL Albumin (3.5-5.0) g/dL - EKG Data -: EKG Interpreted by Me EKG Comments: 12-lead Electrocardiogram Interpretation Note EKG was reviewed and interpreted by myself. 12-lead ECG performed at 1535 is interpreted by me as revealing normal sinus rhythm at a rate of 71 beats per minute. [place] is normal. NM interval is 142 ms, QRS duration is 96 ms, QTc is 432 ms.. There were no ST or T wave abnormalities to suggest myocardial ischemia or injury. R wave progression across the precordium was satisfactory. By my interpretation this EKG is non-diagnostic for acute ischemia. Disposition Clinical Impression: Cerebrovascular accident (CVA), Dysdiadochokinesis on examination, Abnormal finger-nose test, Headache Disposition: ADMITTED IP TO THIS HOSP Condition: Serious
[2021-02-23 16:07] LABS: Partial Thromboplastin Time 28.1 sec (22.0-30.0); Prothrombin Time 10.2 sec (9.0-12.0)
[2021-02-23] MEDS ORDERED: diphenhydrAMINE 50 MG/ML 1 ML VIAL IVP STA (16:26)
[2021-02-23] MEDS ORDERED: SODIUM CHLORIDE 0.9% 1,000 ML IV STA (16:26)
[2021-02-23] MEDS ORDERED: PROCHLORPERAZINE INJ 10 MG/2 ML VIAL IVP STA (16:26)
[2021-02-23] MEDS ORDERED: KETOROLAC 15 MG/ML 1 ML VIAL IVP STA (16:26)
[2021-02-23] MEDS ORDERED: LORazepam 0.5 MG TAB PO PRN (18:04)
[2021-02-23 18:18] LABS: Appearance,Urine Clear (Clear); Bilirubin,Urine Negative (Negative); Blood,Urine Negative (Negative); Color,Urine Light Yellow; Glucose,Urine (UA) Negative (Negative); Ketones,Urine Negative (Negative); Leukocyte Esterase,Urine Negative (Negative); Nitrite,Urine Negative (Negative); PH, Urine 5.5 (5.0-8.0); Protein,Urine Negative (Negative); Urobilinogen,Urine <2.0 mg/dL (<2.0)
[2021-02-23 18:28] LABS: Specific Gravity,Urine >1.050 (1.001-1.035)
--- NOTE | 2021-02-23 18:36 | HP ---
HISTORY AND PHYSICAL DATE OF SERVICE: 02/23/2021. CHIEF COMPLAINT: Weakness. HISTORY OF PRESENT ILLNESS: This 66-year-old woman with a past medical history of multiple medical problems including DJD, history of abnormal stress, shortness of breath, being followed by Dr. Farias in the outpatient setting, not feeling well for the past couple days. Patient went to the office today, patient feeling tired and weak. The patient also had multiple falls also. The patient had bilateral dysdiadochokinesia. She was admitted for evaluation and treatment. There is no history of fever, rigors, chills at this time. The CT brain which was reviewed personally by me showed no acute abnormality. MRI and Neurology evaluation have been requested. There is no history of fever, rigors, chills at this time. PAST MEDICAL HISTORY: History of DJD history shortness of breath, cardiac catheterization. MEDICATIONS: Prior to admission include home medications of Zoloft, Lyrica, [place]; doses reviewed. ALLERGIES: None. FAMILY HISTORY: History of myocardial infarction in the family. SOCIAL HISTORY: History of alcohol occasionally. History of previous smoker. REVIEW OF SYSTEMS: ENT: No diminished vision. CARDIOVASCULAR: No angina. RESPIRATORY: No cough or hemoptysis. GI: No nausea, vomiting. : As noted. No dysuria. NERVOUS SYSTEM: As mentioned. ALLERGY: No asthma or hayfever. MUSCULOSKELETAL: As mentioned. HEMATOLOGY: No history of anemia. ENDOCRINE: No history of diabetes. RHEUMATOLOGY: Negative. CONSTITUTIONAL: As mentioned earlier. PHYSICAL EXAMINATION: Alert, oriented. Pulse 78, blood pressure 144/83, respirations 20, temperature 99.5, pulse ox 98% on room air. HEENT conjunctivae normal. Neck no JVD. Cardiac no murmur, muffled. Respiratory breath sounds diminished at the bases. Few scattered rhonchi and crackles. Abdomen is soft, nontender. Legs no edema. Nervous system diffusely weak and tremors and bilateral dysdiadochokinesis. No nystagmus. No obvious weakness. The reflexes are increased. Skin no ulcers. Joints no active deforming arthropathy. LABS: WBC 5.2, hemoglobin 12.2, sodium 130, potassium 4.1. The labs reviewed. The CT angio is also reviewed personally by me showed no significant abnormality. ASSESSMENT: 1. Bilateral dysdiadochokinesia, rule out cerebellar lesions. 2. History of degenerative joint disease. 3. History of shortness of breath. 4. History of abnormal stress test. 5. Rule out CVA. 6. History of cardiac catheterization. 7. History of depression. 8. Remote history of nicotine dependence. 9. Obesity body mass index 31.5. 10.FULL CODE. RECOMMENDATIONS AND DISCUSSION: This 66-year-old woman presented with multiple complex medical issues. We will monitor the patient closely. Continue the current management and treatment. Neuro checks. Antiplatelet agents. MRI. Neurology evaluation. Resume the home medications. Prognosis guarded because of multiple complex medical issues. Further recommendations to follow. Stop Lyrica for now. Continue to monitor. Prognosis guarded. Further recommendations to follow. MMODL / IJN: [id number] /
[2021-02-23] MEDS: HEPARIN SODIUM,PORCINE/PF 5,000 UNIT/0.5 ML SYRINGE SQ SCH (21:08)
--- NOTE | 2021-02-23 21:09 | US ---
EXAMINATION TYPE: US carotid duplex BILAT DATE OF EXAM: 02/23/2021 COMPARISON: CT angio head and neck 02/23/2021 CLINICAL HISTORY: stroke. EXAM MEASUREMENTS: RIGHT: Peak Systolic Velocity (PSV) cm/sec ----- Right CCA: 154 ----- Right ICA: 142 ----- Right ECA: 179 ICA/CCA ratio: 0.9 RIGHT: End Diastole cm/sec ----- Right CCA: 20.8 ----- Right ICA: 32.6 ----- Right ECA: 13.2 LEFT: Peak Systolic Velocity (PSV) cm/sec ----- Left CCA: 156 ----- Left ICA: 154 ----- Left ECA: 165 ICA/CCA ratio: 1.0 LEFT: End Diastole cm/sec ----- Left CCA: 18.4 ----- Left ICA: 31.0 ----- Left ECA: 14.9 VERTEBRALS (direction of flow): Right Vertebral: Antegrade Left Vertebral: Antegrade Rhythm: Normal Minimal plaque visualized bilaterally. Elevated velocities bilateral CCA, ICA, and ECA without elevat ed ICA/CCA ratio IMPRESSION: There is antegrade flow in the vertebral arteries. There is bilateral elevated velocities in the comm on and internal carotid arteries that is suggestive of 50-70% stenosis. Criteria for Assigning % of Stenosis / Diameter reduction (Estimation based on the indirect measurements of the internal carotid artery velocities (ICA PSV). 1. Normal (no stenosis)=ICA PSV < 125 cm/s: ratio < 2.0: ICA EDV<40 cm/s. 2. Less than 50% stenosis=ICA PSV < 125 cm/s: ratio < 2.0: ICA EDV<40 cm/s. 3. 50 to 69% stenosis=ICA PSV of 125 to 230 cm/s: ration 2.0 ? 4.0: ICA EDV 40-100 cm/s. 4. Greater than 70% stenosis to near occlusion= ICA PSV > 230 cm/s: ratio > 4.0: ICA EDV > 100 cm/s. 5. Near occlusion= ICA PSV velocities may be low or undetectable: variable ratio and ICA EDV. 6. Total occlusion=unable to detect flow.
[2021-02-24] MEDS: ACETAMINOPHEN TAB 325 MG TAB PO PRN (03:58)
[2021-02-24] MEDS: PANTOPRAZOLE 40 MG TABLET PO SCH (06:24)
[2021-02-24] MEDS: ASPIRIN 325 MG TAB PO SCH (08:46)
[2021-02-24] MEDS: HEPARIN SODIUM,PORCINE/PF 5,000 UNIT/0.5 ML SYRINGE SQ SCH ×2 (08:46→08:51)
[2021-02-24 09:15] LABS: Calcium 8.5 mg/dL (8.4-10.2); Potassium 3.9 mmol/L (3.5-5.1)
--- NOTE | 2021-02-24 10:36 | ECHOF ---
Referral Reason:Stroke MEASUREMENTS -------- HEIGHT: 157.5 cm WEIGHT: 78.5 kg BP: RVIDd: 2.9 cm (< 3.3) IVSd: 1.1 cm (0.6 - 1.1) LVIDd: 5.2 cm (3.9 - 5.3) LVPWd: 1.0 cm (0.6 - 1.1) IVSs: 1.8 cm LVIDs: 3.4 cm LVPWs: 1.7 cm LA Diam: 3.4 cm (2.7 - 3.8) Ao Diam: 2.9 cm (2.0 - 3.7) AV Cusp: 1.5 cm (1.5 - 2.6) LA Diam: 4.1 cm (2.7 - 3.8) MV EXCURSION: 16.679 mm (> 18.000) MV EF SLOPE: 52 mm/s (70 - 150) EPSS: 0.9 cm MV E Brock: 0.65 m/s MV DecT: 219 ms MV A Brock: 0.89 m/s MV E/A Ratio: 0.73 RAP: 5.00 mmHg RVSP: 12.51 mmHg FINDINGS -------- Sinus rhythm. Pt is Covid positive. The left ventricular size is normal. Overall left ventricular systolic function is normal with, an EF between 55 - 60 %. The right ventricle is normal in size. The left atrial size is normal. The right atrial size is normal. The aortic valve is trileaflet, and appears structurally normal. No aortic stenosis or regurgitation. Mild mitral regurgitation is present. Mild tricuspid regurgitation present. Right ventricular systolic pressure is normal at < 35 mmHg. There is no pulmonic regurgitation present. There is no pericardial effusion. CONCLUSIONS -------- 1. Pt is Covid positive. 2. The left ventricular size is normal. 3. Overall left ventricular systolic function is normal with, an EF between 55 - 60 %. 4. The right ventricle is normal in size. 5. The left atrial size is normal. 6. The right atrial size is normal. 7. The aortic valve is trileaflet, and appears structurally normal. No aortic stenosis or regurgitati on. 8. Mild mitral regurgitation is present. 9. Mild tricuspid regurgitation present. 10. There is no pericardial effusion. OR SCRUB TECH: Sima dAair RDCS
[2021-02-24] MEDS ORDERED: LORazepam 1 MG TAB PO PRN (11:35)
--- NOTE | 2021-02-24 14:56 | P.CNNES ---
History of Present Illness Consult date: 02/24/21 Requesting physician: Devonte Okeefe Reason for Consult: CVA, dysdiadochokinesia History of Present Illness: Patient is a 66-year-old female, who came to the hospital by ambulance yesterday at 2:17 PM. EMS flow sheet not available in the chart. Patient states that she has not been feeling well for 2 days prior to arrival. It got worse yesterday. She has been feeling dizzy, sick, weak, sore all over, whole body feels weak and wobbly. She denies any recent Covid patient exposure. She has not taken her vaccine, as she is very afraid of needles. Patient also notices that when she was driving her car, she was veering to the left. Likewise when she was walking, she would veer to the left side. She denies any slurred speech, facial droop, focal weakness, numbness or tingling or any other strokelike symptoms. Because of the symptoms patient came to the ER. In the ER patient was noted to have some problems coordination, therefore neurology was consulted. Patient's vitals on arrival blood pressure 144/83, pulse rate 78, temperature 99.5. Computed tomography scan of the head showed no acute intracranial hemorrhage or midline shift. CTA of head and neck showed no significant stenosis in the extracranial or intracranial circulation. EKG shows normal sinus rhythm. Chest x-ray with mild cardiomegaly with suspected mild interstitial edema on background chronic parenchymal change. Patient had a carotid Doppler, which revealed antegrade flow in the vertebral arteries. There is bilateral elevated velocities in the common and internal carotid arteries that is suggestive of 50-70% stenosis. Blood test shows normal CBC, PT/PTT, sodium 135 potassium 4.1, normal renal functions. Hepatic panel is normal troponin negative UA negative. Shukla-virus PCR is positive. Patient currently takes sertraline 200 mg, [place] and Lyrica 150 mg at bedtime. Patient had an MRI of cervical spine previously on 04/12/2020, which revealed mild multilevel degenerative disc disease, more moderate at C6 7 with some associated edema tests moderate type I endplate change. Scattered facet and uncovertebral joint arthropathy. No malalignment. A component of mild congenital spinal canal stenosis with AP canal dimension of 1.0 cm. This mild narrowing is accentuated at C5 6 secondary to disc osteophyte complex. There is overall mild to moderate central canal stenosis at C6 7 with abatement and slight flattening of the ventral cord. No high-grade stenosis. Patient denies diabetes or hypertension, does not drink or does any drugs. Does not take any antiplatelet medication at home. She stopped smoking 20 years ago. Review of Systems As above. Complains of full body feeling weakness. No focal symptoms. No double vision or loss of vision. No headache. Past Medical History Past Medical History: Osteoarthritis (OA) Additional Past Medical History / Comment(s): SHORT OF BREATH EASILY SINCE 11/2014, EST. ABN STRESS TEST. History of Any Multi-Drug Resistant Organisms: None Reported Past Surgical History: Heart Catheterization, Orthopedic Surgery Additional Past Surgical History / Comment(s): LT KNEE ARTHROSCOPY. RT ROTATOR CUFF. Past Anesthesia/Blood Transfusion Reactions: No Reported Reaction Past Psychological History: Depression Smoking Status: Former smoker Past Alcohol Use History: None Reported Past Drug Use History: None Reported - Past Family History Father Family Medical History: Myocardial Infarction ([place]) Mother Family Medical History: Myocardial Infarction ([place]) Medications and Allergies Home Medications Medication Instructions Recorded Confirmed Type Sertraline HCl 200 mg PO HS 03/14/15 02/23/21 History Hydrocodone/Acetaminophen [[place] 1 tab PO QID PRN 07/25/19 02/23/21 History 5-325] Pregabalin [Lyrica] 150 mg PO HS 02/23/21 02/23/21 History Allergies Allergy/AdvReac Type Severity Reaction Status Date / Time No Known Allergies Allergy Verified 02/23/21 15:58 Physical Examination - Vital Signs Vital Signs: Vital Signs Temp Pulse Pulse Resp BP BP Pulse Ox 02/24/21 08:50 100.6 F H 80 18 128/66 92 L 02/24/21 06:32 100.8 F H 02/24/21 03:45 102 F H 87 19 158/89 92 L 02/23/21 22:40 98.3 F 61 18 115/57 93 L 02/23/21 21:11 62 20 118/76 96 02/23/21 18:30 56 L 18 120/65 99 02/23/21 18:00 98.2 F 86 16 108/75 96 02/23/21 14:28 99.5 F 78 20 144/83 98 Intake and Output 10/12/0702/24/21 02/24/21 22:59 06:59 14:59 Other: Voiding Method Toilet Toilet # Voids 1 Weight 79.379 kg 78.7 kg Patient is an elderly female, who is laying comfortably in the bed. Patient is slightly coughing sometimes. Patient is alert awake oriented to time place and person. Patient knows it is February 2021 and that she is in [facility]. Regarding president, she states she does not keep track on it, states it is a "new lynda". Speech and language functions are normal. Attention, concentration and fund of knowledge is adequate. Her voice is slightly hoarse. No aphasia or dysarthria. On cranial examination, pupils are round and reacting to light, visual orona are full on confrontation, extraocular muscles are intact with no nystagmus. Face is symmetric, tongue protrudes to the midline. Palatal elevation and sensation normal, hearing and shoulder shrug normal, facial sensation normal. Shoulder shrug normal. On muscle strength testing, there is no pronator drift and the strength is normal in arms and legs distally and proximally. 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 Deep tendon reflexes are 1+ in the upper limbs, 2+ in the lower limbs and plantars are withdrawal. Sensory to touch is equal with no neglect. Cerebellar function showed no ataxia for tloxif-ho-jyue testing. No dysdiadochokinesia. Tone and bulk of muscles normal. Gait deferred. On general examination, there is no carotid bruit or murmur, S1-S2 audible. Abdomen is soft nontender. Chest is clear. Peripheral pulses are present. No edema. Results - Laboratory Findings CBC and BMP: 02/23/21 15:41 02/24/21 06:24 Abnormal Lab Findings: Abnormal Labs 02/23/21 02/23/21 02/23/21 15:41 15:41 17:57 Lymphocytes # 0.9 L Sodium 135 L BUN 19 H Glucose 101 H Ur Specific [place] >1.050 H Coronavirus (PCR) 02/23/21 02/24/21 17:57 06:24 Lymphocytes # Sodium 135 L BUN Glucose 105 H Ur Specific [place] Coronavirus (PCR) Detected A Assessment and Plan Assessment: * 2 days history of dizziness, generalized weakness, soreness, likely due to prodromal symptoms of newly diagnosed Covid-19 infection. Her examination is nonfocal. Doubt stroke/TIA. * Acute Covid-19 infection in a patient who has not been vaccinated. Plan: * Patient is undergoing MRI of the brain. * CTA of head and neck are normal. * 2-D echo revealed normal left ventricular size. EF is between 55-60%. Left atrial size is normal. * Telemetry monitoring showing sinus rhythm with sinus bradycardia in the 40s. No other arrhythmia. * We will follow MRI report. If negative, then neurology will sign off.
[2021-02-24] MEDS ORDERED: CASIRIVIMAB (REGN10933) (EUA) 600 MG, IMDEVIMAB (REGN10987) (EUA) 600 MG in SODIUM CHLO... IVPB ONE ×2 (18:00→20:00)
[2021-02-24] MEDS: ENOXAPARIN 40 MG/0.4 ML SYRINGE SQ SCH (18:20)
[2021-02-24] MEDS ORDERED: SODIUM CHLORIDE 0.9% 50 ML IVPB ONE ×2 (18:30→20:30)
[2021-02-24 18:31] LABS: Chol/HDL Ratio 2.68 Ratio; HDL Cholesterol 51.1 mg/dL (40.00-60.00); LDL Cholesterol,Calculated 74.8 mg/dL (0.0-131.0); Triglycerides 55.7 mg/dL (0.00-149.00); VLDL Calculation 11.14 mg/dL (5.00-40.00)
--- NOTE | 2021-02-24 18:55 | PN ---
PROGRESS NOTE DATE OF SERVICE: 02/24/2021 This 66-year-old woman who was admitted with generalized weakness had bilateral dysdiadochokinesia, and possibility of acute stroke was considered at this time. The stroke workup is also in progress. Carotid Doppler was done today which showed minimal plaques bilaterally without any definite stenosis. Neurology has seen the patient and recommended MRI of the brain and CT angio and telemetry monitoring. No chest pain. No palpitations. No fever. The patient's COVID-19 is also positive. Past medical history reviewed. REVIEW OF SYSTEMS: CARDIOVASCULAR: As mentioned earlier. RESPIRATORY SYSTEM: As mentioned earlier. GI: As mentioned earlier. : No dysuria. NERVOUS SYSTEM: No numbness, weakness. MEDICATIONS: Current medications are reviewed. PHYSICAL EXAMINATION: Alert and oriented x3. Pulse is 80, blood pressure 128/86, respiration 18, temperature 100.6, pulse ox 92% on room air. HEENT: Conjunctivae normal. NECK: No jugular venous distention. CARDIOVASCULAR: S1, S2 muffled. RESPIRATION: Breath sounds diminished at the bases. A few scattered rhonchi. ABDOMEN: Soft. LEGS: No edema. No swelling. NERVOUS SYSTEM: Diffusely weak. LABS: Sodium 135. UA noted. COVID-19 is positive. ASSESSMENT: 1. Generalized weakness and dysdiadochokinesia. Rule out acute stroke. 2. Acute COVID-19 infection with continued fever. 3. History of degenerative joint disease. 4. History of shortness of breath. 5. History of abnormal stress test. 6. History of cardiac catheterization. 7. History of depression. 8. Remote history of nicotine dependence. 9. Obesity with body mass index of 31.5. 10.FULL CODE. 11.Lymphopenia. 12.Hyponatremia. 13.Elevated random glucose. RECOMMENDATIONS AND DISCUSSION: In this 66-year-old woman who presented with multiple complex medical issues, we will monitor the patient closely, continue the current medications. Continue symptomatic treatment. Will initiate Lovenox and the usual treatment for COVID-19. I would also recommend MRI scan to rule out the possibility of any acute stroke. Infectious Disease has been consulted. The pulse ox is low at 92 on room air at this time. I would recommend D-dimer and if D-dimer is positive, I recommend CT angio of the chest. The patient might be a candidate for remdesivir. Further recommendations to follow. MMODL / IJN: [id number] /
--- NOTE | 2021-02-24 19:29 | MR ---
EXAMINATION TYPE: MR brain wo/w con DATE OF EXAM: 02/24/2021 COMPARISON: CT brain 02/23/2021 HISTORY: Dizziness. TECHNIQUE: Multiplanar, multisequence images of the brain and brainstem is performed without and with IV contras t, intravenous Gadavist FINDINGS: Diffusion weighted images demonstrate no evidence of a recent infarct or other diffusion ab normality. There is no extra-axial fluid collection or significant white matter signal abnormality. The ventricular system and cisternal spaces are normal in size and appearance. The brain volume is age appropriate. There is a mild burden of periventricular and subcortical T2/FLAIR hyperintensity li shawn on the basis of chronic ischemic microangiopathic change. Midline structures demonstrate normal morphology. The craniocervical junction appears within normal limits. Although images are somewhat limited by motion, post contrast images demonstrate no abnormal enhancement. The dural venous sinuses appear patent. The visualized sinuses are clear and the globes are intact. IMPRESSION: Minimal senescent changes without an acute intracranial process. No evidence of infarct, intracranial hemorrhage, mass or pathological intracranial enhancement.
[2021-02-24] MEDS: HYDROcodone/APAP 5-325MG 1 EACH TAB PO PRN (21:26)
[2021-02-24] MEDS: CHOLECALCIFEROL 25 MCG (1000 IU) TABLET PO SCH (21:26)
[2021-02-24] MEDS: dexAMETHasone 2 MG TAB PO SCH (21:26)
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
[2021-02-25] MEDS: ACETAMINOPHEN TAB 325 MG TAB PO PRN (04:10)
[2021-02-25] MEDS: ONDANSETRON 4 MG/2 ML VIAL IVP PRN ×2 (04:43→17:01)
[2021-02-25] MEDS: PANTOPRAZOLE 40 MG TABLET PO SCH (06:15)
[2021-02-25] MEDS: ASPIRIN 325 MG TAB PO SCH (08:38)
[2021-02-25] MEDS: CHOLECALCIFEROL 25 MCG (1000 IU) TABLET PO SCH (08:38)
[2021-02-25] MEDS: dexAMETHasone 2 MG TAB PO SCH (08:38)
[2021-02-25] MEDS: ZINC SULFATE 220 MG CAP PO SCH (08:38)
[2021-02-25] MEDS: ASCORBIC ACID 500 MG TAB PO SCH (08:38)
[2021-02-25] MEDS: ENOXAPARIN 40 MG/0.4 ML SYRINGE SQ SCH (09:28)
[2021-02-25 09:54] LABS: Basophils % (A) 0 %; Eosinophils % (A) 1 %; HCT 39.5 % (34.0-46.0); HGB 12.6 gm/dL (11.4-16.0); Lymphocytes # (A) 0.6 k/uL (1.0-4.8); Lymphocytes % (A) 8 %; MCH 28.2 pg (25.0-35.0); MCHC 31.8 g/dL (31.0-37.0); MCV 88.5 fL (80.0-100.0); Mean Platelet Volume 7.7; Monocytes # (A) 0.2 k/uL (0-1.0); Monocytes % (A) 2 %; Neutrophils # (A) 6.9 k/uL (1.3-7.7); Neutrophils % (A) 89 %; Platelet Count 244 k/uL (150-450); RBC 4.46 m/uL (3.80-5.40); WBC 7.7 k/uL (3.8-10.6)
[2021-02-25 10:07] LABS: ALT 16 U/L (4-34); AST 34 U/L (14-36); African American GFR (CKD) >90 (>60 ml/min/1.73 sqM); Albumin 4.1 g/dL (3.5-5.0); Alkaline Phosphatase 88 U/L (38-126); Anion Gap 9 mmol/L; Blood Urea Nitrogen 12 mg/dL (7-17); C Reactive Protein 5.4 mg/dL (<1.0); Calcium 8.9 mg/dL (8.4-10.2); Carbon Dioxide 23 mmol/L (22-30); Chloride 104 mmol/L (98-107); Glucose 142 mg/dL (74-99); LDH 599 U/L (313-618); Non-African American GFR(CKD) >90 (>60 ml/min/1.73 sqM); Potassium 4.3 mmol/L (3.5-5.1); Sodium 136 mmol/L (137-145); Total Bilirubin 0.3 mg/dL (0.2-1.3); Total Protein 7.2 g/dL (6.3-8.2)
--- NOTE | 2021-02-25 16:35 | PN ---
PROGRESS NOTE DATE OF SERVICE: 02/25/2021 REASON FOR FOLLOWUP: COVID-19 pneumonia. INTERVAL HISTORY: The patient is currently afebrile. The patient is feeling better. She is breathing comfortably, currently on room air. The patient denies having any chest pain. Minimal cough. No sputum production. No vomiting. No abdominal pain or diarrhea. PHYSICAL EXAMINATION: Blood pressure 144/78 with a pulse of 80, temperature of 98.1. She is 94% on room air. General description is an elderly female up in the bed in no distress. RESPIRATORY SYSTEM: Unlabored breathing. Decreased intensity of breath sounds. No wheeze or crackle. HEART: S1, S2. Regular rate and rhythm. ABDOMEN: Soft. No tenderness. LABS: Hemoglobin is 12.6, white count 7.7, creatinine 0.69. CRP is 5.4. DIAGNOSTIC IMPRESSION AND PLAN: Patient with acute COVID-19 infection in this patient who did have a mild illness, admitted to hospital for CVA workup, has received monoclonal antibodies. Will be monitored closely for any worsening respiratory status and continue supportive care. MMODL / IJN: [id number] /
[2021-02-25] MEDS: SODIUM CHLORIDE 0.9% 1,000 ML IV SCH (20:19)
--- NOTE | 2021-02-25 21:12 | PN ---
PROGRESS NOTE DATE OF SERVICE: 02/25/2021 This 66-year-old woman who was admitted with generalized weakness and multiple medical issues also had some dysarthria and weakness today, and STROKE CODE was called. Neurology evaluation was sought also. An urgent brain MRI was done today which showed minimal senescent changes without any acute infarct at this time; however, the patient also has COVID-[address] angio is not available. The patient also had a 2D echo with Doppler done today which showed ejection fraction 55% to 60%. There is no history of any fever, rigor or chills. Past medical history reviewed. REVIEW OF SYSTEMS: CARDIOVASCULAR: No angina, palpitations. RESPIRATORY SYSTEM: As mentioned earlier. GI: As mentioned earlier. : No dysuria. NERVOUS SYSTEM: As mentioned earlier. CURRENT MEDICATIONS: Reviewed. They include Tylenol, [place], vitamin, aspirin, Hexadrol, Lovenox, Ativan, Zofran, Protonix. PHYSICAL EXAMINATION: Patient is alert and oriented x3. Pulse 81, blood pressure 131/60, respirations 16, temperature 98.3, pulse ox 94% on room air. HEENT: Conjunctivae normal. NECK: No jugular venous distention. CARDIOVASCULAR: S1, S2 muffled. RESPIRATION: Breath sounds diminished at the bases. A few scattered rhonchi. ABDOMEN: Soft, nontender. LEGS: No edema. No swelling. NERVOUS SYSTEM: No focal deficit. LABS: D-dimer is 0.64. COVID-19 is positive. ASSESSMENT: 1. Generalized weakness and dysdiadochokinesia, possible acute transient ischemic attack. 2. Acute COVID-19 infection with continued fever. 3. Elevated D-dimer. 4. History of degenerative joint disease. 5. History of shortness of breath. 6. History of abnormal stress test. 7. History of cardiac catheterization. 8. History of depression. 9. Remote history of nicotine dependence. 10.Obesity with body mass index of 31.5. 11.Lymphopenia. 12.Hyponatremia. 13.Elevated random glucose. 14.FULL CODE. RECOMMENDATIONS AND DISCUSSION: I recommend to continue current medications, continue with symptomatic treatment. Continue the antiplatelet agents. Continue with the rest of the medications. Infectious Disease is also following the patient closely. I would also recommend vitamin supplementation and CT angio of the chest. Guarded prognosis. Further recommendations to follow. A chest x-ray done at the time of admission did show some increased vascularity in both lower lobes. As mentioned earlier, D-dimer is elevated at 0.64. MMODL / IJN: [id number] /
--- NOTE | 2021-02-25 23:07 | CT ---
EXAMINATION TYPE: CT angio chest DATE OF EXAM: 02/25/2021 COMPARISON: None HISTORY: R/O PE CT DLP: 276.50 mGycm Automated exposure control for dose reduction was used. CONTRAST: Performed with IV Contrast, patient injected with 100 mL of Isovue 370. There are 3-D post processed images. There is some interstitial patchy infiltrate in both lungs. There is subsegmental atelectasis at the lung bases. Heart appears enlarged. There is no pericardial effusion. There is mild pleural thickenin g at the posterior lung bases. There is no evidence of filling defect in the pulmonary arteries. There are a few bilateral bronchial lymph nodes up to 1 cm. There is no mediastinal adenopathy. Thora cic aorta is intact. Thoracic vertebra appear intact. There is no compression fracture. Sternum is intact. The ribs appear intact. IMPRESSION: No evidence of pulmonary embolism. Patchy pulmonary interstitial infiltrates and atelectasis. Cardiom egaly.
[2021-02-26] MEDS: PANTOPRAZOLE 40 MG TABLET PO SCH (05:46)
[2021-02-26] MEDS: ENOXAPARIN 40 MG/0.4 ML SYRINGE SQ SCH (07:41)
[2021-02-26] MEDS: ASPIRIN 325 MG TAB PO SCH (08:44)
[2021-02-26] MEDS: dexAMETHasone 2 MG TAB PO SCH (08:44)
[2021-02-26] MEDS: ZINC SULFATE 220 MG CAP PO SCH (08:44)
[2021-02-26] MEDS: ASCORBIC ACID 500 MG TAB PO SCH (08:44)
[2021-02-26] MEDS: CHOLECALCIFEROL 25 MCG (1000 IU) TABLET PO SCH (08:44)
[2021-02-26] MEDS: ONDANSETRON 4 MG/2 ML VIAL IVP PRN (12:30)
[2021-02-26] MEDS: HYDROcodone/APAP 5-325MG 1 EACH TAB PO PRN (15:57)
[2021-02-26] MEDS: SODIUM CHLORIDE 0.9% 1,000 ML IV SCH (15:57)
[2021-02-26] MEDS ORDERED: ALPRAZolam 0.25 MG TAB PO STA (18:45)
--- NOTE | 2021-02-26 20:26 | PN ---
PROGRESS NOTE DATE OF SERVICE: 02/26/2021 This 66-year-old woman was admitted with generalized weakness and acute Covid 19 infections the patient had a suspicious stroke yesterday, but MRI did not show acute abnormality. A CT of the chest was also done today which showed no evidence of pulmonary embolism. The CT was reviewed personally by me showed bilateral patchy infiltrates suggestive of acute Covid 19 pneumonia. PAST MEDICAL HISTORY: Reviewed. REVIEW OF SYSTEMS: Cardiovascular: No angina. Respirations: As mentioned earlier. GI as mentioned earlier. no dysuria. Nervous system: No numbness, weakness. MEDICATIONS: Reviewed and include: Tylenol, [place], vitamin C, aspirin, Lovenox, rest of medication noted. PHYSICAL EXAMINATION: Patient is alert and oriented times three. Pulse 58, blood pressure 120/72, respirations 16, temperature 97.1, pulse ox 97% on room air. HEENT: Conjunctivae normal. Neck: No JVD. CARDIOVASCULAR: S1, S2 muffled. Respiration: Breath sounds diminished in the bases. A few scattered rhonchi and crackles. ABDOMEN: Soft, nontender. Legs are no edema. No swelling. Nervous system: No focal deficits. LAB: CBC within normal limits and D-dimer is 0.64. Sodium 136. ASSESSMENT: 1. Generalized weakness and dysdiadochokinesia, possible acute transient ischemic attack. 2. Acute Covid 19 infection with continued fever and acute bilateral interstitial pneumonia possibly secondary to Covid 19. 3. Elevated D-dimer without any evidence of acute pulmonary embolism. 4. History of degenerative joint disease. 5. History of shortness of breath. 6. History of abnormal stress test. 7. History of cardiac catheterization. 8. History of depression. 9. Remote history of nicotine dependence. 10.Obesity with body mass index 31.5. 11.Lymphopenia. 12.Hyponatremia. 13.Elevated random glucose. 14.FULL CODE. RECOMMENDATIONS AND DISCUSSION: Recommend to continue current medications, symptomatic treatment. Otherwise at this time I recommend continue the rest of medications. Otherwise, PT/OT evaluation. Increase ambulation. Closely follow with multiple consultants including Neurology and as well as Infectious Disease. Guarded prognosis. Further recommendations to follow. MMODL / IJN: [id number] / MTDD
--- NOTE | 2021-02-27 02:31 | PN ---
PROGRESS NOTE DATE OF SERVICE: 02/26/2021 REASON FOR FOLLOWUP: COVID-19 pneumonia. INTERVAL HISTORY: Patient is afebrile. The patient is breathing comfortably. The patient remains to be on room air sating 97-98 percent. The patient denies having any chest pain. She did have a cough. No worsening though, not bringing up any sputum. No abdominal pain. No diarrhea. PHYSICAL EXAMINATION: Blood pressure is 144/81, pulse of 57, temperature of 98. She is 98% on room air. General description is an elderly female lying in bed in no distress. Respiratory system: Unlabored breathing, decreased intensity of breath sounds. No wheeze. Heart S1, S2. Regular rate and rhythm. Abdomen soft, no tenderness. No rigidity. Extremities: No edema of the feet. LABS: Hemoglobin is 12.3, white count 7.7. D-dimer is 0.64, creatinine 0.69. CT angiogram was negative shows mild . DIAGNOSTIC IMPRESSION AND PLAN: Patient with acute COVID-19 pneumonia, mild infection in this patient admitted to the hospital for , rule out. The patient has received monoclonal antibodies and seems to be doing well. Remains to be afebrile and no need for supplemental oxygen. Patient to continue Lovenox, zinc and ascorbic acid. No need for Remdesivir or steroids. MMODL / IJN: [id number] /
[2021-02-27 03:25] VITALS: RESP 18
[2021-02-27] MEDS: PANTOPRAZOLE 40 MG TABLET PO SCH (06:16)
[2021-02-27] MEDS: ENOXAPARIN 40 MG/0.4 ML SYRINGE SQ SCH (10:01)
[2021-02-27] MEDS: CHOLECALCIFEROL 25 MCG (1000 IU) TABLET PO SCH (10:54)
[2021-02-27] MEDS: ZINC SULFATE 220 MG CAP PO SCH (10:55)
[2021-02-27] MEDS: ASCORBIC ACID 500 MG TAB PO SCH (10:55)
[2021-02-27] MEDS: ASPIRIN 325 MG TAB PO SCH (10:55)
[2021-02-27 13:07] VITALS: BP 138/72; PULSE 56; TEMP 98
--- NOTE | 2021-02-27 13:38 | PN ---
PROGRESS NOTE DATE OF SERVICE: 02/27/2021 REASON FOR FOLLOWUP: COVID-19 pneumonia. INTERVAL HISTORY: The patient was seen on rounds this morning. The patient has been afebrile. The patient is breathing comfortably on room air. The patient denies any chest pain. Cough has decreased intensity. No vomiting. No abdominal pain. No diarrhea. PHYSICAL EXAMINATION: Blood pressure 149/94 with pulse of 52, temperature is 97.8. She is 94% on room air. General description is an elderly female up in the bed in no distress. Respiratory system: Unlabored breathing, decreased intensity of breath sounds. No wheeze. Heart S1, S2. Regular rate and rhythm. Abdomen soft, no tenderness. LABS: No new labs have been obtained today. DIAGNOSTIC IMPRESSION AND PLAN: Patient with acute COVID-19 pneumonia in this patient who has received monoclonal antibodies. The patient has shown overall clinical improvement. Treatment is going to be mostly supportive. She has been advised to get Covid 19 vaccine 3 months from now to prevent recurrent infection. Questions and concerns were answered. MMODL / IJN: [id number] /
--- NOTE | 2021-02-27 20:53 | DS ---
DISCHARGE SUMMARY DATE OF SERVICE: 02/27/2021 FINAL DIAGNOSES: 1. Generalized weakness and dysdiadochokinesia, possible acute transient ischemic attack. 2. Acute COVID-19 infection with continued fever and acute bilateral interstitial pneumonia, early possibly secondary to Covid 19. 3. Change in mental status, acute metabolic encephalopathy, multifactorial. 4. Elevated D-dimer without any evidence of acute pulmonary embolism. 5. History of degenerative joint disease. 6. History of shortness of breath. 7. History of abnormal stress test. 8. History of cardiac catheterization. 9. History of depression. 10.Remote history of nicotine dependence. 11.Obesity with body mass index 31.5. 12.Lymphopenia. 13.Hyponatremia. 14.Elevated random glucose. 15.FULL CODE. DISCHARGE DISPOSITION: The patient being discharged in stable condition with guarded prognosis. Discharge cleared by multiple consultants. The patient is keen on going home. Stable currently with overall prognosis guarded. HISTORY OF PRESENT ILLNESS: This 66-year-old woman with a past medical history of multiple medical problems, being followed by Dr. Farias in the outpatient setting was admitted with multiple symptomatology as mentioned earlier. Initially possibility of TIA was considered. The patient also had Covid 19 but however the patient was not hypoxic, treated symptomatically. Patient improved significantly. Patient also extensively evaluated for any acute stroke, which was not shown in any of the investigations. Overall patient made significant improvement. The patient will be discharged in stable condition with guarded prognosis. EXAM: Vitals signs stable. Cardiovascular system: S1, S2. Abdomen soft. Nervous system: No focal deficits. DISCHARGE ADVICE AND MEDICATIONS: 1. Discharge diet is cardiac diet. 2. Activity limited until follow up. 3. Follow up with Dr. Farias in 1-2 days. DISCHARGE MEDICATIONS: 1. Lyrica 150 mg q.h.s. 2. Hydrocodone p.r.n. 3. Zoloft 200 mg q.h.s. 4. Aspirin 81 mg daily. 5. Zinc 210 mg daily. 6. Tylenol p.r.n. 7. Vitamin C 1000 mg daily. 8. Vitamin D3 25 mcg p.o. daily. Once again, the patient discharged in stable condition with guarded prognosis. The patient seen by Infectious Disease while in the hospital. MMODL / IJN: [id number] /
== END 2021-02-27 13:26 | disposition home or self-care (01) | DRG 177 ==
LOC: EC 14:17 → 3SCARD 16:43
PROVIDERS: ADMIT Hospitalist; ATTEND Hospitalist
PROC: 3E0330M Introduction of Antineoplastic, Monoclonal Antibody, into Peripheral Vein, Percutaneous Approach (ICD-10-PCS; principal; 2021-02-24)
DX: U07.1 COVID-19 (principal); G93.41 Metabolic encephalopathy; J12.82 Pneumonia due to coronavirus disease 2019; G45.9 Transient cerebral ischemic attack, unspecified; E87.1 Hypo-osmolality and hyponatremia; D72.810 Lymphocytopenia; E66.9 Obesity, unspecified; Z68.31 Body mass index [BMI] 31.0-31.9, adult; I25.10 Atherosclerotic heart disease of native coronary artery without angina pectoris; M12.9 Arthropathy, unspecified; M25.78 Osteophyte, vertebrae; M48.02 Spinal stenosis, cervical region; M54.10 Radiculopathy, site unspecified; I51.7 Cardiomegaly; R29.700 NIHSS score 0; Z79.899 Other long term (current) drug therapy; Z82.49 Family history of ischemic heart disease and other diseases of the circulatory system; Z87.891 Personal history of nicotine dependence
CPT/HCPCS: 36415; 70450; 70496; 70498; 70553; 71046; 71275; 80048; 80053; 80061; 81003; 82728; 83615; 84484; 85025; 85379; 85610; 85652; 85730; 86140; 87635; 93005; 93306; 93880; 96361; 96374; 96375; 99285